=== PATIENT | male | born 1950 | race Caucasian/White ===

== ENCOUNTER 2024-12-08 10:16 | Outpatient (AMB) | payer MEDICARE, SELFPAY ==
--- NOTE | 2024-12-08 10:38 | HO.SPINEOV ---
Vital Signs 12/08/24 10:43 Height 5 ft 8 in Weight 170 lb BMI 25.8 Intake Visit Reasons: LBP Intake Note: Mr. Arreguin is here today c/o Burning pain in the back of the legs. Combination Machine Tender Required: No Allergies No Known Allergies Allergy (Verified 12/08/24 10:44) Physical Exam Vital Signs: BMI result Body Mass Index 25.8 Assessment & Plan Assessment & Plan (1) Lower extremity pain: Code(s): M79.606 - Pain in leg, unspecified Category: Medical Plan Mr. Arreguin is a self-referred 74-year-old gentleman who came in today to be evaluated for posterior hamstring pain. He has had this issue going on for about 15 years. It started when he was in a car riding back from a trip to [place] and noticed a feeling of burning pain in his buttocks going down about midway to his hamstrings. Ever since that day, it has never gone away. The pain is present when he is sitting but as soon as he stands up with an about 10 seconds it is all gone away. He rates it at about 7/10. He did have a lumbar decompression done at L4-5 at [facility] a number of years ago but unfortunately had no effect. He does not have any tingling or otherwise radicular-type claudicating pain going down the legs. He came in today to see if there was anything that could be done for him. He has done cortisone injections, professional healthcare representative, gabapentin, multiple medication trials including narcotics and a spinal cord stimulator trial all without any relief. PMH: He is a reasonably healthy gentleman, history of hypertension, appendectomy, cholecystectomy Social hx: He does not smoke, drink use any recreational drugs Medications: Takes no regular medication Allergies: None Physical exam: Awake alert oriented, strength, reflexes and gait are normal Imaging review: There is a lumbar MRI done in April 2024 showing postsurgical changes at L4-5 with good decompression of the central canal. There is some mild foraminal stenosis at L4. No residual central canal stenosis is seen otherwise just some mild degenerative disc disease. Impression: 74-year-old gentleman with posterior buttock and hamstring pain when he is sitting. He goes away as soon as he stands up. The central spinal canal is widely patent with no signs of nerve compression. There is reports of some foraminal stenosis at L4 but that would not explain hamstring pain. I am not sure how to explain the feeling he has had but I do not think it is related to compression of nerves. Unfortunately there is no surgery to offer him. Thank you for allowing us to care for your patient. The total time spent with this visit with this patient was 45 minutes reviewing history, physical exam, lumbar imaging review, and implementation of treatment plan or further diagnostic testing Marcus Galvan MD,PhD [facility] Coding Level of Care Code New Pt Level 4 (43240) Diagnoses Lower extremity pain M79.606
[2024-12-08 10:43] VITALS: BMI 25.8
--- OUTSIDE RECORDS SUMMARY | 2024-12-08 11:30 | XMS_ITS | Data Portability ---
Author Organization [facility], PAIN OFFICE Address [address] [place] [address] Care Team Providers Care Compensation Agent Name Role Phone CELINE ASHLEY Primary Care Provider [phone] PANCHO ACOSTA Referring Provider [phone] Assessment Encounter Date Assessment Date Assessment LastModified by Organization Details LastModified Time 03/13/2021 03/13/2021 Steve Arreguin is a 70? ? ?year old man with low back pain radiating into both lower extremities. On exam ,he has pain on flexion. MRI Lumbar spine shows Spondylotic and degenerative disc changes of the lumbar spine are present . Trial of Lumbar transforaminal epidural steroid injection at L5-S1 on the left under fluoroscopic guidance was recommended. The risks and benefits of the procedure? ? ? were discussed in detail. He wishes to proceed. An appointment has been booked for the same. He needs a driver salesman on the day of the procedure. [email or web address] Not available 03/14/2021 11:03:45 04/17/2021 04/17/2021 Steve Arreguin is a 70? ? ?year old man with low back pain radiating into both lower extremities. On exam ,he has pain on flexion. MRI Lumbar spine shows Spondylotic and degenerative disc changes of the lumbar spine are present . He is here for a trial of Left lumbar transforaminal epidural steroid injection at L5-S1 on the left under fluoroscopic guidance . The risks and benefits of the procedure? ? ? were discussed in detail. He wishes to proceed. He will follow up in six weeks. [email or web address] Not available 04/17/2021 10:05:43 05/26/2021 05/26/2021 Steve Arreguin is a 70? ? ?year old man with low back pain radiating into both lower extremities. On exam ,he has pain on flexion. MRI Lumbar spine shows Spondylotic and degenerative disc changes of the lumbar spine are present . Repeat Lumbar transforaminal epidural steroid injection at L5-S1 on the left under fluoroscopic guidance was recommended. The risks and benefits of the procedure? ? ? were discussed in detail. He wishes to proceed. An appointment has been booked for the same. He needs a driver salesman on the day of the procedure. [email or web address] Not available 05/26/2021 13:13:07 07/22/2021 07/22/2021 Steve Arreguin is a 70? ? ?year old man with low back pain radiating into both lower extremities. On exam ,he has pain on flexion. MRI Lumbar spine shows Spondylotic and degenerative disc changes of the lumbar spine are present . He is here for a Left lumbar transforaminal epidural steroid injection at L5-S1 on the left under fluoroscopic guidance . The risks and benefits of the procedure? ? ? were discussed in detail. He wishes to proceed. He will follow up in three months for a repeat injection. [email or web address] Not available 07/22/2021 09:47:02 11/11/2021 11/11/2021 Steve Arreguin is a 71? ? ?year old man with low back pain radiating into both lower extremities. On exam ,he has pain on flexion. MRI Lumbar spine shows Spondylotic and degenerative disc changes of the lumbar spine are present . He is here for a caudal epidural steroid injections under fluoroscopic guidance . The risks and benefits of the procedure? ? ? were discussed in detail. He wishes to proceed. He needs to follow up in four weeks. [email or web address] Not available 11/11/2021 11:25:24 Plan of Treatment Reminders Order Date Submit Date Provider Last Modified By Organization Details Last Modified Time Details Appointments None recorded. Lab None recorded. Referral None recorded. Procedures None recorded. Surgeries None recorded. Imaging None recorded. Medication Orders pregabalin 75 mg capsule 2020 021 [email or web address] [id number], [address] [place] [address], [place], [address], 09:24:29 Patient TargetsNo targets recorded. Patient Instructions Encounter Date Encounter Id Patient Instructions Last Modified By Organization Details Last Modified Time 03/13/2021 [id number] He was advised against bed rest lasting longer than four days and to continue activities as tolerated. [email or web address] Not available 03/13/2021 10:06:01 04/17/2021 [id number] He was advised against bed rest lasting longer than four days and to continue activities as tolerated. [email or web address] Not available 04/17/2021 10:05:06 05/26/2021 [id number] Telehealth visit: The patient was located at home for this telephone electronic visit and gave consent for this visit to be conducted via telehealth. 16 minutes was spent on this call and greater than 50% of the visit was spent on counseling and coordination of care. [email or web address] Not available 05/26/2021 13:14:04 07/22/2021 [id number] He was advised against bed rest lasting longer than four days and to continue activities as tolerated. [email or web address] Not available 07/22/2021 09:45:32 11/11/2021 [id number] He was advised against bed rest lasting longer than four days and to continue activities as tolerated. [email or web address] Not available 11/11/2021 11:24:48 Reason for Referral None Reported. Problems Name Problem SNOMED Code Status Onset Date Resolution Date Notes Provider Name and Address Organization Details Recorded Time Degeneration of lumbar intervertebral disc 89423805 Active Tulio woods MD [address] [facility] , [facility] [address], [place], [address], [place] [facility] 10:14:25 Lumbosacral radiculopathy 9490964 Active Tulio woods MD [address] [facility] , [address], [place], [address], [place] [facility] 10:14:37 Problem Notes None recorded. Procedures Surgical History Date Name Laterality Status Provider Name and Address Organization Details Recorded Time 11/11/19 22 Caudal Epidural Steroid Injection under fluroscopic guidance completed Tulio Larios MD [address] [facility] , [address], [place], [address], [place] [facility] 11/11/2021 11:23:35 07/22/20 21 Lumbar Transforaminal epidural steroid injection under fluroscopic guidance completed Tulio Larios MD [address] , [address], [place], [address], [place] [facility] 07/22/2021 09:46:20 04/17/20 21 Lumbar Transforaminal epidural steroid injection under fluroscopic guidance completed Tulio Larios MD [address] , [address], [place], [address], [place] [facility] 04/17/2021 10:03:21 02/12/20 21 Lumbar Epidural steroid injection under fluoroscopic guidance completed Tulio Larios MD [address] , [address], [place], [address], [place] [facility] 02/11/2021 11:26:22 Back Surgery completed Tulio Larios MD [address] , [address], [place], [address], [place] [facility] 02/07/2021 11:16:26 open stone operation on kidney or renal pelvis completed Tulio Larios MD [address] , [address], [place], [address], [place] [facility] 05/26/2021 13:10:11 Imaging Results None recorded. Procedure Notes None recorded. Medical Equipment None Reported. Allergies No known drug allergies Medications Name Sig Start Date Stop Date Status Note LastModified by Organization Details LastModified Time tizanidine 2 mg tablet 02/07 completed Not Available Not Available Not Available hydrocodone 5 mg-acetamin ophen 325 mg tablet 02/07 completed Not Available Not Available Not Available tamsulosin 0.4 mg capsule TAKE 1 CAPSULE BY MOUTH EVERY DAY 07/22 completed Not Available Not Available Not Available venlafaxine 37.5 mg tablet TAKE 1 TABLET BY MOUTH EVERY DAY active Not Available Not Available No t Available losartan 25 mg tablet TAKE 1 TABLET BY MOUTH EVERY DAY active Not Available Not Available No t Available gabapentin 100 mg capsule TAKE 1 CAPSULE BY MOUTH AT BEDTIME 02/07 completed Not Available Not Available Not Available methylpredn isolone 4 mg tablets in a dose pack TAKE 6 TABLETS ON DAY 1 DIRECTED ON PACKAGE AND DECREASE BY 1 TAB EACH DAY FOR A TOTAL OF 6 DAYS 02/07 completed Not Available Not Available Not Available pregabalin 75 mg capsule Take 1 capsule every day by oral route at bedtime for 30 days. 04/17 completed Not Available Not Available Not Available diclofenac 1 % topical gel APPLY TO AFFECTED AREA 4 TIMES A DAY 04/17 completed Not Available Not Available Not Available Vitals Date Recorded Body height Heart rate Oxygen saturation Oxygen saturation in Arterial blood by Pulse oximetry Systolic blood pressure Diastolic blood pressure Provider Name and Address Organization Details Last Updated DateTime 1 172.72 cm 71 /min 98 % 98 % 142 mm[Hg] 82 mm[Hg] Divya Hickey [facility] 1 08:59:06 Date Recorded Body height Heart rate Oxygen saturation Oxygen saturation in Arterial blood by Pulse oximetry Body mass index (BMI) Body weight Systolic blood pressure Diastolic blood pressure Provider Name and Address Organization Details Last Updated DateTime 1 172.72 cm 75 /min 98 % 98 % 24.8 kg/m2 48293.5 6 g 126 mm[Hg] 85 mm[Hg] Divya Hickey [place] [facility] 1 09:27:17 Date Recorded Body height Heart rate Oxygen saturation Oxygen saturation in Arterial blood by Pulse oximetry Systolic blood pressure Diastolic blood pressure Provider Name and Address Organization Details Last Updated DateTime 1 172.72 cm 91 /min 99 % 99 % 137 mm[Hg] 91 mm[Hg] Divyalynda OrtegaRuperto [facility] 1 09:29:19 Date Recorded Body height Heart rate Oxygen saturation Oxygen saturation in Arterial blood by Pulse oximetry Systolic blood pressure Diastolic blood pressure Provider Name and Address Organization Details Last Updated DateTime 2 172.72 cm 68 /min 97 % 97 % 133 mm[Hg] 93 mm[Hg] Divyalynda OrtegaRuperto [facility] 2 11:01:13 Social History Question Answer Notes LastModified by Organizat ion Details LastModified Time Tobacco Smoking Status Never Smoker Tulio Larios [facility] , [address], [place], [address], [place] [facility] 02/07/2021 11:14:47 What Is Your Level Of Alcohol Consumption? None [email or web address] Information not available 02/07/2021 Which Illicit Or Recreational Drugs Have You Used? 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 With Others Information not available 02/07/2021 Marital Status [email or web address] Informati on not available 02/07/2021 Sex: Unknown Functional Status None recorded. Mental Status None recorded. Family History Relationship Description Onset Age of this Age Resolved Age Notes LastModified by Organization Details LastModified Time Mother Arthritis [email or web address] Not avail able 02/07/2021 11:14:36 Medical History Condition Response Arthritis Y Hypertension Y Past Encounters Encounter ID Performer Location Encounter Start Date Encounter Closed Date Diagnosis/Indication Diagnosis SNOMED-CT Code Diagnosis ICD10 Code Diagnosis Note [id number] Tulio Larios MD PAIN OFFICE [address] [place] [address] 02/07/2021 10:43:26 02/10/2021 11:15:58 Degeneration of lumbar intervertebral disc 95877197 M51.36 Lumbosacra l radiculopathy 0008957 M54.17 [id number] Tulio Larios MD PAIN OFFICE [address] [place] [address] 02/11/2021 10:51:21 02/11/2021 11:29:42 Degeneration of lumbar intervertebral disc 38502055 M51.36 Lumbosacra l radiculopathy 6540198 M54.17 [id number] Tulio Larios MD [facility] [address] [place] [address] 03/13/2021 08:53:13 03/13/2021 10:08:30 Degeneration of lumbar intervertebral disc 53217292 M51.36 Lumbosacra l radiculopathy 0789524 M54.17 [id number] Tulio Larios MD [facility] [address] [place] [address] 04/17/2021 09:20:32 04/17/2021 10:06:38 Degeneration of lumbar intervertebral disc 90345010 M51.36 Lumbosacra l radiculopathy 0975164 M54.17 [id number] Tulio Larios MD PAIN OFFICE [address] [facility] [place] [address] 05/26/2021 13:06:12 05/26/2021 14:13:47 Degeneration of lumbar intervertebral disc 82301817 M51.36 Lumbosacra l radiculopathy 1867626 M54.17 [id number] Tulio Larios MD PAIN OFFICE [address] [facility] [place] [address] 07/22/2021 09:23:38 07/22/2021 09:52:52 Degeneration of lumbar intervertebral disc 14382551 M51.36 Lumbosacra l radiculopathy 2072042 M54.17 [id number] Tulio Larios MD PAIN OFFICE [address] [facility] [place] [address] 11/11/2021 10:55:56 11/11/2021 11:27:26 Degeneration of lumbar intervertebral disc 53618537 M51.36 Lumbosacra l radiculopathy 4071555 M54.17 Health Concerns Section Related Observation LastModified by Organization Detai ls LastModified Time None Recorded Concern Status LastModified by Organization Details LastModified Time None Recorded Advance Directives Directive None Recorded Payers Encounter Date Sequence Insurance Name Policy Number Policy Sol Covered Member ID Sol Member ID Guarantor Name 03/13/2021 1 [employer] - MEDICARE ADVANTAGE PLAN (MEDICARE REPLACEMENT HMO) [id number] Steve Arreguin [id number] Steve Arreguin 04/17/2021 1 [employer] - MEDICARE ADVANTAGE PLAN (MEDICARE REPLACEMENT HMO) [id number] Steve Arreguin [id number] Steve Arreguin 05/26/2021 1 [employer] - MEDICARE ADVANTAGE PLAN (MEDICARE REPLACEMENT HMO) [id number] Steve Arreguin [id number] Steve Arreguin 07/22/2021 1 [employer] - MEDICARE ADVANTAGE PLAN (MEDICARE REPLACEMENT HMO) [id number] Steve Arreguin [id number] Steve Arreguin 11/11/[address] [place] [address] - MEDICARE ADVANTAGE PLAN (MEDICARE REPLACEMENT HMO) [id number] Steve Arreguin [id number] Steve Arreguin Notes Date Note Type Note Provider Name and Address Organization Details Recorded Time 03/13/2021 text/html He is here for a follow up after a lumbar epidural steroid injection under fluoroscopic guidance. He reports 70% pain relief for three weeks with a return of pain back to baseline. He states he was sleeping better after the injection. He is walking better and has been walking one mile a day or more. He is complaining of occasionally achiness in his low back . He has no history of bladder or bowel incontinence. Tulio Larios MD [address] [facility] , [place] [address], [place], [address], [place] [facility] 03/14/2021 11:03:52 04/17/2021 text/html He is here for a left transforaminal epidural steroid injection under fluoroscopic guidance. Tulio Larios MD [address] [facility] , [facility] [address], [place], [address], [place] [facility] 04/17/2021 10:28:10 05/26/2021 text/html He is here for a follow up after a lumbar transforaminal epidural steroid injection under fluoroscopic guidance. He reports 70% pain relief for three weeks with a return of pain back to baseline. He states he was sleeping better after the injection. He is walking better and has been walking one mile a day or more. He is complaining of occasionally achiness in his low back . He has no history of bladder or bowel incontinence. Tulio Larios MD [address] [facility] , [address], [place], [address], [place] [facility] 05/26/2021 15:37:59 07/22/2021 text/html He is here for a left transforaminal epidural steroid injection under fluoroscopic guidance. Tulio Larios MD [address] [facility] , [address], [place], [address], [place] [facility] 07/23/2021 08:52:30 11/11/2021 text/html He is here for a caudal epidural steroid injection under fluoroscopic guidance Tulio Larios MD [address] [facility] , [address], [place], [address], [facility] 11/11/2021 11:28:10
--- OUTSIDE RECORDS SUMMARY | 2024-12-08 11:30 | XMS_ITS | Clinical Summary ---
Author Organization [facility] Address [address] [place] [address] Care Team Providers Care Car Porter Name Role Phone Josias Whitaker MD Primary Care Provider + [phone] Allergies No known active allergies Medications Medication Sig Dispensed Refills Start Date End Date Status losartan (COZAAR) tablet 25 mg Take 25 mg by mouth daily. 0 06/17/2020 Active venlafaxine (EFFEXOR) 37.5 MG tablet Take 37.5 mg by mouth daily. as directed 0 04/22/2020 Active Diclofenac Sodium 1 % GEL topical Apply topically 4 (four) times a day. 0 04/19/2020 Active Active Problems Problem Noted Date Diagnosed Date It band syndrome, left 08/02/2020 Greater trochanteric bursitis of left hip 2019 Family History Medical History Relation Name Comments Cancer Father Relation Name Status Comments Father Social History Tobacco Use Types Packs/Day Years Used Date Smoking Tobacco: Never Assessed Sex and Gender Information Value Date Recorded Sex Assigned at Not on file Gender Identity Not on file Sexual Orientation Not on file Last Filed Vital Signs Vital Sign Reading Time Taken Comments Blood Pressure - - Pulse - - Temperature - - Respiratory Rate - - Oxygen Saturation - - Inhaled Oxygen Concentration - - Weight 77.1 kg (170 lb) 07/18/2020 10:32 AM EDT Height 172.7 cm (5' 8 ) 07/18/2020 10:32 AM EDT Body Mass Index 25.85 07/18/2020 10:32 AM EDT Plan of Treatment Health Maintenance Due Date Last Done Comments Hepatitis C Screening 1950 COVID-19 Vaccine (#1) 03/05/1951 Depression Screening 1964 Preventative Health Evaluation 1970 DTap / Tdap / Td (1 - Tdap) 1971 Colon Cancer Screening (Colonoscopy) 1997 Shingrix-Zoster Vaccine (1 of 2) 2002 Fall Risk Assessment 2017 Pneumococcal Vaccine (1 of 1 - PCV) 2017 Influenza Vaccine (#1) 2024 RSV Adult > 60+ Yrs or Pregn ant (1 - 1-dose 75+ series) 2027 Hepatitis B Vaccines Aged Out No long er eligible based on patient's age to complete this topic RSV Ped < 20 months Aged Out No longe r eligible based on patient's age to complete this topic Care Teams Car Porter Relationship Specialty Start Date End Date Josias Whitaker MD [facility] [place] [address] PCP - General Internal Medicine 07/12/20
--- OUTSIDE RECORDS SUMMARY | 2024-12-08 11:30 | XMS_ITS | Continuity of Care Document ---
Author Organization [facility] Address [address] [place] [address]- Support Name Relationship Address Phone JAMES, JOSSE Personal Relationship Unknown Unavailable JAMES, JOSSE Personal Relationship Unknown Unavailable JAMES, JOSSE spouse Unknown Unavailab le JAMES, JOSSE Personal Relationship Unknown Unavailable JAMES, ENIO Personal Relationship Unknown Unavailable JAMES, JOSSE Personal Relationship Unknown Unavailable JAMES, JOSSE Personal Relationship Unknown Unavailable JAMES, JOSSE Personal Relationship Unknown Unavailable JAMES, JOSSE Personal Relationship Unknown Unavailable JAMES, JOSSE Personal Relationship Unknown Unavailable JAMES, JOSSE Personal Relationship Unknown Unavailable JAMES, JOSSE Personal Relationship Unknown Unavailable JAMES, JOSSE Personal Relationship Unknown Unavailable JAMES, CJ Personal Relationship Unknown U navailable JAMES, JOSSE Personal Relationship Unknown Unavailable JAMES, JOSSE Personal Relationship Unknown Unavailable JAMES, JOSSE Personal Relationship Unknown Unavailable JAMES, JOSSE Personal Relationship Unknown Unavailable JAMES, JOSSE Personal Relationship Unknown Unavailable JAMES, JOSSE Personal Relationship Unknown Unavailable JAMES, JOSSE Personal Relationship Unknown Unavailable JAMES, JOSSE Personal Relationship Unknown Unavailable JAMES, JOSSE Personal Relationship Unknown Unavailable JAMES, JOSSE Personal Relationship Unknown Unavailable Care Team Providers Care Plant Security Guard Name Role Phone Julianne NORTH, Josias Adan Primary Care Physician Encounter [facility] Date(s): 10/15/24 - 11/14/24 [facility] [address] [place], [place] [address] Encounter Type: Triage Allergies, Adverse Reactions, Alerts No Known Allergies Immunizations Given and Recorded Vaccine Date Status Refusal Reason influenza virus vaccine, inactivated 10/21/24 Thomas rded influenza virus vaccine, inactivated 07/24/23 Thomas rded influenza virus vaccine, inactivated 09/11/22 Thomas rded influenza virus vaccine, inactivated 1 08/24/19 Gi reina pneumococcal 20-valent conjugate vaccine 04/10/24 Recorded SARS-CoV-2(COVID-19)mRNA-LNP vac([id number]) 07/24/23 Recorded Influenza Virus Vaccine (oldterm) 07/06/22 Recorde d Influenza Virus Vaccine (oldterm) 07/21/20 Recorde d Influenza Virus Vaccine (oldterm) 2 09/21/08 Given Influenza Virus Vaccine (oldterm) 3 09/21/08 Given SARS-CoV-2 (COVID-19) mRNA BNT-162b2 vac 08/08/21 Recorded SARS-CoV-2 (COVID-19) mRNA BNT-162b2 vac 01/03/21 Recorded SARS-CoV-2 (COVID-19) mRNA BNT-162b2 vac 12/13/20 Recorded zoster vaccine, inactivated 10/28/20 Recorded zoster vaccine, inactivated 07/21/20 Recorded pneumococcal 23-valent vaccine 4 11/10/18 Given pneumococcal 13-valent vaccine 5 10/05/17 Given Tet/Diphth/Acel, Pertussis (oldterm) 12/08/16 Give n Tetanus-Diphth Toxoids, Adult (oldterm) 6 12/08/13 Recorded tetanus-diphtheria toxoids (Td) 12/01/02 Given 1Result Comment: [facility]:[id number] 2Admin Note: RECEIVED ELSEWHERE 3Admin Note: declined 4Result Comment: [11/10/2018] [id number] 5Result Comment: [10/05/2017] [id number] 6Result Comment: [12/08/2016] er dog bite Medications acetaminophen 325 mg oral tablet 975 mg, By Mouth, Every 6 hours, Refills 0, Maintenance, 08/12/22 9:33:00 AM EST, Partial fill upon patient request if the prescription is for a schedule II opioid drug. Start Date: 08/12/22 Status: Ordered Repeat number: 1 aspirin 81 mg oral delayed release tablet 81 mg, 1, tablet, By Mouth, Daily, # 30 tablet, Refills 0, Tot. Refills 0, Maintenance, 06/14/24 9:26:00 AM EDT, Do Not Route, Partial fill upon patient request if the prescription is for a schedule II opioid drug. Start Date: 06/14/24 Status: Ordered Quantity: 30.0 Unit: tablet Repeat number: 1 atorvastatin 80 mg oral tablet 1 tablet = 80 mg, By Mouth, Daily, # 30 tablet, 5 Refills, Maintenance, 06/14/24 9:27:00 AM EDT, Tablet, [facility]/pharmacy #[id number], Partial fill upon patient request if the prescription is for a schedule II opioid drug., 173, cm, 06/14/24 8:43:00 EDT, Height, 78.2, kg, 06/14/24 8:43:00 EDT, Dry Weight Start Date: 06/14/24 Status: Ordered Quantity: 30.0 Unit: tablet Repeat number: 6 cholestyramine 4 g/5.7 g oral powder for reconstitution = 4 Gm, By Mouth, Daily, should be cholestyramine LITE . dissolve in water or juice, # 168 Gm, 6 Refills, Maintenance, 09/12/24 1:05:00 PM EST, [facility]/pharmacy #[id number], 173, cm, 07/07/24 9:12:00 EDT, Height, 78, kg, 07/07/24 9:12:00 EDT, Dry Weight Start Date: 09/12/24 Stop Date: 07/03/25 Status: Ordered Quantity: 168.0 Unit: g Repeat number: 7 diclofenac 1% topical gel 1 application, Topically, 4 times a day, # 100 Gm, 5 Refills, Maintenance, 11/05/22 9:36:00 PM EST, Gel, [facility]/pharmacy #[id number], 173, cm, 10/30/22 10:47:00 EST, Height, 76.3, kg, 10/25/22 21:39:00 EST, DryWeight Start Date: 11/05/22 Status: Ordered Quantity: 100.0 Unit: g Repeat number: 6 Feosol Caplet 45 mg oral tablet 1 tablet = 45 mg, By Mouth, Daily, 0 Refills, Maintenance, 10/15/24 10:43:00 AM EST, Partial fill upon patient request if the prescription is for a schedule II opioid drug. Start Date: 10/15/24 Status: Ordered Repeat number: 1 isosorbide mononitrate 30 mg oral tablet, extended release 15 mg, 0.5, tablet, By Mouth, Daily in AM, # 30 tablet, Refills 11, Tot. Refills 11, Maintenance, 06/14/24 9:28:00 AM EDT, Route to Pharmacy Electronically, [facility]/pharmacy #[id number], Partial fill upon patient request if the prescription is for a schedule II opioid drug., 173, cm, 06/14/24 8:43:00 EDT, Height, 78.2, kg, 06/14/24 8:43:00 EDT, Dry Weight Start Date: 06/14/24 Status: Ordered Quantity: 30.0 Unit: tablet Repeat number: 12 losartan 50 mg oral tablet 1 tablet = 50 mg, By Mouth, Daily, # 90 tablet, 3 Refills, Maintenance, 06/14/24 9:26:00 AM EDT, Tablet, [facility]/pharmacy #[id number], this is an increase, 173, cm, 06/14/24 8:43:00 EDT, Height, 78.2, kg, 06/14/24 8:43:00 EDT, Dry Weight Start Date: 06/14/24 Status: Ordered Quantity: 90.0 Unit: tablet Repeat number: 4 nitroglycerin 0.4 mg sublingual tablet 1 tablet = 0.4 mg, Sublingual, Every 5 minutes, PRN as needed for chest pain, not to exceed 3 doses/15 min--if pain persists, seek medical attention, # 100 tablet, 3 Refills, Maintenance, 06/14/24 9:29:00 AM EDT, Tablet, [facility]/pharmacy #[id number], Partial fill upon patient request if the prescription is for a schedule II opioid drug., 173, cm, 06/14/24 8:43:00 EDT, Height, 78.2, kg, 06/14/24 8:43:00 EDT,Dry Weight Start Date: 06/14/24 Status: Ordered Quantity: 100.0 Unit: tablet Repeat number: 4 PEG-[id number] with Electrolytes (Eqv-GoLYTELY) oral powder for reconstitution See Instructions, ok to substitute for any gallon prep, # 1 each, 0 Refills, Maintenance, 10/16/24 1:28:00 PM EST, [facility]/pharmacy #[id number], Partial fill upon patient request if the prescription is for a schedule II opioid drug., ok to substitute for any gallon prep, 173, cm, 10/12/24 8:44:00 EST, Height,78, kg, 10/12/24 8:44:00 EST, Dry Weight Start Date: 10/16/24 Status: Ordered Quantity: 1.0 Unit: each Repeat number: 1 pramipexole 0.125 mg oral tablet 2 tablet = 0.25 mg, By Mouth, Daily, 1 week of one tablet 2 hours before qhs and then increase to 2tablets, # 60 tablet, 2 Refills, Maintenance, 10/12/24 9:11:00 AM EST, [facility]/pharmacy #[id number], Partial fill upon patient request if the prescription is for a schedule II opioid drug., 173, cm, 10/12/24 8:44:00 EST, Height, 78, kg, 10/12/24 8:44:00 EST, Dry Weight Start Date: 10/12/24 Status: Ordered Quantity: 60.0 Unit: tablet Repeat number: 3 venlafaxine 37.5 mg oral tablet 1 tablet, By Mouth, Daily, # 90 tablet, 3 Refills, Maintenance, 08/25/24 2:46:00 PM EST, [id number], 173, cm, 07/07/24 9:12:00 EDT, Height, 78, kg, 07/07/24 9:12:00 EDT, Dry Weight Start Date: 08/25/24 Status: Ordered Quantity: 90.0 Unit: tablet Repeat number: 1 Problem List Condition Confirmation Course Effective Dates Status H ealth Status Informant Angina pectoris with coronary microvascular dysfunction Confirmed Active Calculus of gallbladder with chronic cholecystitis Confirmed Active Cholelithiasis - lap danial 08/2022 Confirmed Active C. difficile colitis Confirmed 11/04/22 Active Depression Confirmed Active Diverticulosis of sigmoid colon and ascending colon Confirmed 06/04/13 Active Dysphagia Confirmed Active Hypertension Confirmed 12/27/07 Active IBS - Irritable bowel syndrome Confirmed Active IBS (irritable bowel syndrome) Confirmed Active Postoperative bile leak with duodenal ulcers Confirmed Active Meralgia paresthetica Confirmed Active Lumbar spinal stenosis Procedure: L4-L5 decompression, bilateral; microdiscectomy, left. Confirmed 10/18/20 Active TIA Confirmed Active Social History Social History Type Response Smoking Status Never smoker entered on: 01/17/15 Sex Sex Representation Male (finding) Patient Care team information Care Team Personnel Name: Kate DELGADO, Mary Herrera Position: [facility] RN Member Role: Primary Care Nurse Name: Josias Whitaker MD Position: [facility] Physician - Primary Care Member Role: PCP Address: [address] [place] [address] Adult [facility] [place] [address]- Telecom: Name: Yareli Clemente RN Position: S RN Member Role: Primary Care Nurse Name: Sharon Montero RN Position: S RN Member Role: Primary Care Nurse Name: Nena Vallecillo RN Position: S RN Member Role: Primary Care Nurse Care Team Related Persons Name: JOSSE JAMES Insurance Providers Guarantor name: RICHI JAMES [facility] Plan Information #: 1 Payer: [employer] HMO Member Number: NA Policy Number: NA Group Number: [id number]
--- OUTSIDE RECORDS SUMMARY | 2024-12-08 11:30 | XMS_ITS | Data Portability ---
Author Organization [place] - [facility], [address] Address [address] [place] [address] Care Team Providers Care Property Custodian Name Role Phone SUZIECELINE RANDHAWA Primary Care Provider [phone] Assessment No assessment recorded. Plan of Treatment Reminders Order Date Submit Date Provider Last Modified By Organization Details Last Modified Time Details Appointments None recorde d. Lab None recorde d. Referral None recorde d. Procedures None recorde d. Surgeries None recorde d. Imaging XR, ribs, unilate ral, w/ PA chest - left ribs. 023 04/07/20 23 [email or web address] [facility], [address] [place], [address], 12:39:46 Medication Orders None recorde d. Patient TargetsNo targets recorded. Patient Instructions Encounter Date Encounter Id Patient Instructions Last Modified By Organization Details Last Modified Time 04/07/2023 [id number] broken rib: care instructions [email or web address] Not available 04/07/2023 12:32:21 chest contusion: care instructions [email or web address] Not available 04/07/2023 12:32:21 Perform deep breathing exercises several times daily as instructed. Over the counter tylenol may be taken per package instructions. See printed instructions. Follow-up with your doctor as soon as possible. Seek Emergency Medical evaluation for any worsening symptoms, particularly for fever, coughing up blood, shortness of breath, abdominal pain, dizziness. [email or web address] Not available 04/07/2023 12:33:53 Reason for Referral None Reported. Results Created Date Observation Date Name Description Value Unit Range Abnormal Flag Note LastModifiedBy Organization Detail LastModifiedTime 04/07/20 23 04/07/2023 XR, ribs, unila teral , w/ PA chest No observ ation record ed. [email or web address] [facility] [address] [place], [address], 04/07/2023 12:31:19 Result Notes None recorded. Problems Name Problem SNOMED Code Status Onset Date Resolution Date Notes Provider Name and Address Organization Details Recorded Time Hypertensive disorder 27163757 Active 2022 SANDY AISHA null, [place] - [facility] 10:51:11 Anxiety 73782393 Active 2022 SANDY AISHA null, [place] - [facility] 10:51:20 Problem Notes None recorded. Procedures Surgical History Date Name Laterality Status Provider Name and Address Organization Details Recorded Time percutaneous extraction of kidney stone with fragmentation procedure completed SANDY AISHA [place] - [facility] 04/07/2023 10:51:40 Appendectomy completed SANDY AISHA [place] - [facility] 04/07/2023 10:51:54 cholecystectomy completed SANDY AISHA [place] - [facility] 04/07/2023 10:52:09 Imaging Results Imaging Date Name Status LastModified by Organiz ation Details LastModified Time 04/07/2023 XR, ribs, unilateral, w/ PA chest completed [email or web address] [facility] [address] [place], [address], 04/07/2023 12:31:19 Procedure Notes None recorded. Medical Equipment None Reported. Allergies No known drug allergies Medications Name Sig Start Date Stop Date Status Note LastModified by Organization Details LastModified Time venlafaxine active Not Available Not A vailable Not Available losartan active Not Available Not Avai lable Not Available Vitals Date Recorded Oxygen saturation Oxygen saturation in Arterial blood by Pulse oximetry Heart rate Respiratory rate Body temperature Body height Body mass index (BMI) Body weight Pain severity - 0-10 verbal numeric rating [Score] - Reported Systolic blood pressure Diastolic blood pressure Provider Name and Address Organization Details Last Updated DateTime 97 % 97 % 78 /min 16 /min 97.9 [degF] 172.72 cm 25.1 kg/m2 72246.7 4 g 8 146 mm[Hg] 89 mm[Hg] SANDY AISHA [place] - [facility] 10:57:29 Social History Question Answer Notes LastModified by Organizat ion Details LastModified Time Tobacco Smoking Status Never Smoker SANDY AISHA null, [place] - [facility] 04/07/2023 10:52:53 What Is Your Level Of Alcohol Consumption? None Information not available 04/07/2023 Are You Currently Employed? No Information not available 04/07/2023 Do You Use Any Illicit Or Recreational Drugs? No Information not available 04/07/2023 Have You Recently Traveled Abroad? Yes [place] Information not available 04/07/2023 Do You Or Have You Ever Used Any Other Forms Of Tobacco Or Nicotine? No Information not available 04/07/2023 Sex: Unknown Functional Status None recorded. Mental Status None recorded. Family History Relationship Description Onset Age of this Age Resolved Age Notes LastModified by Organization Details LastModified Time Father Malignant neoplastic disease Not available 2022 10:52:27 Medical History No medical history recorded. Immunizations Vaccine Type Date Status Note Provider Nam e and Address Organization Details Recorded Time zoster recombinant 10/28/2020 completed SANDY AISHA null, [place] - [facility] 04/07/2023 10:49:18 zoster recombinant 07/21/2020 completed SANDY AISHA null, [place] - [facility] 04/07/2023 10:49:18 Influenza, high-dose, quadrivalent, PF 09/11/2022 completed SANDY AISHA null, [place] - [facility] 04/07/2023 10:49:18 COVID-19, mRNA, LNP-S, PF, 30 mcg/0.3 mL dose 12/13/2020 completed SANDY AISHA null, [place] - [facility] 04/07/2023 10:49:18 COVID-19, mRNA, LNP-S, PF, 30 mcg/0.3 mL dose 01/03/2021 completed SANDY AISHA null, [place] - [facility] 04/07/2023 10:49:18 COVID-19, mRNA, LNP-S, PF, 30 mcg/0.3 mL dose 08/08/2021 completed MAYRA Jackson - [facility] 04/07/2023 10:49:18 Past Encounters Encounter ID Performer Location Encounter Start Date Encounter Closed Date Diagnosis/Indication Diagnosis SNOMED-CT Code Diagnosis ICD10 Code Diagnosis Note [id number] [address] [facility] [address] [facility] [address] [place] [address] [phone] 0 04/09/2019 11:36:35 04/09/2019 12:57:26 [id number] [place] [address] [phone] 7 09/14/2017 08:08:04 09/14/2017 08:41:28 [id number] [address] [place] [address] [phone] 7 09/30/2017 08:05:50 09/30/2017 08:31:25 [id number] [address] [address] [place] [address] [phone] 0 09/14/2017 19:11:23 09/14/2017 19:52:16 [id number] [address] [address] [place] [address] [phone] 0 05/04/2019 10:56:18 05/04/2019 12:19:20 [id number] [address] [facility] [address] [place] [address] [phone] 7 09/12/2020 08:03:30 09/12/2020 08:56:37 [id number] [address] [facility] [address] [place] [address] [phone] 0 04/27/2018 18:50:18 04/27/2018 19:18:04 [id number] Nicolette Haley MD [address] [facility] [address] [place] [address] [phone] 0 04/07/2023 10:30:05 04/07/2023 12:39:46 Contusion of left chest wall [id number] S20.212A Closed fra cture of single left rib 0845538175 [id number] S22.32XA Health Concerns Section Related Observation LastModified by Organization Detai ls LastModified Time None Recorded Concern Status LastModified by Organization Details LastModified Time None Recorded Advance Directives Directive None Recorded Payers Encounter Date Sequence Insurance Name Policy Number Policy Sol Covered Member ID Sol Member ID Guarantor Name 05/04/2019 1 [employer] MED[employer] PLAN (MEDICARE REPLACEMENT HMO) [id number] Steve Aadn Kallie [id number] Steve Arreguin 04/07/2023 1 [employer] - MEDIC[employer]VANTAGE PLAN (MEDICARE REPLACEMENT HMO) [id number] Steve Arreguin [id number] Steve Arreguin Notes Date Note Type Note Provider Name and Address Organization Details Recorded Time 04/07/2023 text/html Ribs / Chest WallReported bypatient.Method of ArrivalPatient arrived at Urgent Care ambulatory Location:chest wall; anterior; left Quality:sharp; constant Onset/Timinam today. Context:trauma; Fell out of bed during nightmare. Aggravating factors:change in position; twisting; Deep inspiration, palpation. Alleviating factors:rest Associated Symptoms:hurts to breathNotes:72 year old male presenting for evaluation of an injury to his left anterior ribs after a fall out of bed at 2am today. He reports that he is a very restless sleeper and had a nightmare about someone attacking him. He tried to kick back and ended up falling out of bed. No head injury or loss of consciousness. He landed on his left anterior and lateral thorax. No neck or back pain. No abdominal pain. He has pain in the left anterior chest wall which is worse with movement, palpation and deep inspiration. He does not feel short of breath. No fever or cough. No numbness or weakness of the extremities. No headache or visual disturbance. He is not on any blood thinners. Nicolette Haley MD [address] [place], [address], [place] - [facility] 04/07/2023 12:38:44
== END 2024-12-08 11:46 | disposition home or self-care (01) ==
PROVIDERS: PCP Internal Medicine; Visit Provider Physician Assistant
DX: M79.606 Pain in leg, unspecified (principal)
CPT/HCPCS: 99204

== ENCOUNTER → 2024-12-08 10:16 | Outpatient (BNVA) | payer MEDICARE, SELFPAY | PROVIDERS: PCP Internal Medicine; Visit Provider Physician Assistant | DX: M79.606 Pain in leg, unspecified (principal) | CPT/HCPCS: 99202 ==